=== PATIENT | male | born 1995 | race Two or more races ===

== ENCOUNTER 2022-08-31 13:32 | Emergency (ER) | payer OTHER ==
[~2022-08-31] VITALS: Ht 175.3 cm; Wt 77.1 kg
[2022-08-31] MEDS ORDERED: EMTRICITABINE-1 EACH PO (14:35)
== END 2022-08-31 18:27 | disposition home or self-care (01) ==
LOC: ER 13:32
DX: S93.401A Sprain of unspecified ligament of right ankle, initial encounter (principal); X50.1XXA Overexertion from prolonged static or awkward postures, initial encounter; Y93.02 Activity, running; Y92.9 Unspecified place or not applicable; Y99.9 Unspecified external cause status